=== PATIENT | male | born 1935 | race Caucasian/White ===

== ENCOUNTER 2016-08-20 10:39 | Observation (INO) | payer MEDICARE, OTHER ==
--- NOTE | 2016-08-20 11:30 | RAD ---
EXAM DESCRIPTION: Chest,1 View CLINICAL HISTORY: chest pain FINDINGS/ IMPRESSION: Comparison 04/28/2016 Mild cardiac enlargement and tortuous aorta. Cardiac pacer No pulmonary edema, alveolar infiltrate or effusion. No pneumothorax. Stable chest Electronically signed by: Bravo Oneil MD 08/20/2016 11:30 AM [facility]
--- NOTE | 2016-08-20 11:59 | ED.PDOC ---
History of Present Illness - General Chief Complaint: Chest Pain/ID Stated Complaint: chest pain and SOB Time Seen by Provider: 08/20/16 11:06 Source: patient, RN notes reviewed, Vital Signs reviewed, family, old records Exam Limitations: no limitations - History of Present Illness Initial Comments: Patient is an 81 y/o male who was having his PT/INR checked at his doctor's office when he started feeling very weak and having chest pain. Patient has had chest pain for the past 3 weeks. He has been feeling weak since April. He has lost about 30 pounds since April. He has a pacemaker, and he believes he was supposed to have it changed in May. He is having shortness of breath and is tachypnic. He feels very unstable when he walks and is fearful that he will fall. 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 reports some confusion at times. Timing/Duration: 1 hour Severity: moderate Improving Factors: nothing Worsening Factors: movement Associated Symptoms: chest pain, malaise, shortness of breath, weakness Allergies/Adverse Reactions: Allergies Penicillin V [From Pen-Vee-K] Allergy (Verified 08/20/16 10:54) Home Medications: Ambulatory Orders ALPRAZolam [Xanax] 1 mg PO BEDTIME 01/20/14 Calcium 600 mg PO DAILY 01/20/14 Sotalol HCl [Betapace] 80 mg PO BID 01/20/14 Warfarin Sodium 5 mg PO DAILY 01/20/14 Cholecalciferol [Vitamin D] 1,000 unit PO DAILY 04/28/16 Levothyroxine Sodium 50 mcg PO DAILY 04/28/16 Review of Systems - Review of Systems Constitutional: States: malaise, weakness EENTM: States: nose congestion Respiratory: States: short of breath Cardiology: States: chest pain Gastrointestinal/Abdominal: States: no symptoms reported Genitourinary: States: no symptoms reported Musculoskeletal: States: joint pain, muscle stiffness Skin: States: no symptoms reported Neurological: States: tremors, weakness Endocrine: States: unexplained weight loss Hematologic/Lymphatic: States: easy bleeding All other Systems: Reviewed and Negative Past Medical History (General) - Patient Medical History Hx Stroke: No Hx Cardiac Disorders: Yes Hx Congestive Heart Failure: No Hx Pacemaker: Yes Hx Hypertension: Yes Hx Thyroid Disease: Yes Hx Diabetes: No Hx Cancer: Yes - Skin Surgical History: pacemaker, tonsillectomy - Vaccination History Hx Tetanus, Diphtheria Vaccination: No Hx Influenza Vaccination: No Hx Pneumococcal Vaccination: Yes - Social History Hx Tobacco Use: No Hx Alcohol Use: No Hx Substance Use: No Family Medical History - Family History Father Family History: Unknown Living Status: Physical Exam - Physical Exam General Appearance: Alert, Restless Ears, Nose, Throat: hearing grossly normal Respiratory: decreased breath sounds, other - tachypnia Cardiovascular/Chest: regular rate, rhythm, no murmur Gastrointestinal/Abdominal: normal bowel sounds, non tender, soft, no organomegaly, no pulsatile mass Extremity: non-tender, pedal edema - 2+, swelling - 2+ edema Neurologic: alert, oriented x 3, other - irritable Skin Exam: normal color, warm/dry Progress - Results/Orders Results/Orders: 08/20/16 08/20/16 10:55 11:03 Temperature 96.5 F L Pulse Rate [ 66 65 MONITOR] Respiratory 22 22 Rate Blood Pressure 142/76 [Left Arm] O2 Sat by Pulse 96 Oximetry 08/20/16 12:15 EKG STAT 08/20/16 Lunch Regular Diet Laboratory Results WBC 6.1 K/mm3 (4.8-10.8) 08/20/16 10:55 RBC 5.30 M/mm3 (4.70-6.10) 08/20/16 10:55 Hgb 16.6 gm/dL (14.0-18.0) 08/20/16 10:55 Hct 50.7 % (42.0-52.0) 08/20/16 10:55 MCV 95.6 fl (80.0-94.0) H 08/20/16 10:55 MCH 31.2 pg (27.0-31.0) H 08/20/16 10:55 MCHC 32.7 g/dL (33.0-37.0) L 08/20/16 10:55 RDW 14.1 % (11.5-14.5) 08/20/16 10:55 Plt Count 214 K/mm3 (130-400) 08/20/16 10:55 MPV 8.6 fl (7.40-10.4) 08/20/16 10:55 Absolute Neuts (auto) 3.90 K/uL (1.8-6.8) 08/20/16 10:55 Absolute Lymphs (auto) 1.40 K/uL (1.0-3.4) 08/20/16 10:55 Absolute Monos (auto) 0.60 K/uL (0.2-0.8) 08/20/16 10:55 Absolute Eos (auto) 0.30 K/uL (0.0-0.4) 08/20/16 10:55 Absolute Basos (auto) 0.00 K/uL (0.0-0.1) 08/20/16 10:55 Neutrophils % 64.0 % (42.0-78.0) 08/20/16 10:55 Lymphocytes % 22.2 % (20.0-50.0) 08/20/16 10:55 Monocytes % 9.1 % (2.0-9.0) H 08/20/16 10:55 Eosinophils % 4.5 % (1.0-5.0) 08/20/16 10:55 Basophils % 0.2 % (0.0-2.0) 08/20/16 10:55 PT 29.8 SECONDS (9.4-12.5) H* 08/20/16 10:55 INR 2.660 08/20/16 10:55 PTT (SP) 38.6 SECONDS (25.1-36.5) H 08/20/16 10:55 D-Dimer, Quantitative < 230 ng/mL (0-230) 08/20/16 10:55 Sodium 141 mmol/L (135-145) 08/20/16 10:55 Potassium 4.2 mmol/L (3.6-5.0) 08/20/16 10:55 Chloride 107 mmol/L (101-111) 08/20/16 10:55 Carbon Dioxide 29 mmol/L (21-31) 08/20/16 10:55 Anion Gap 9.2 (12-18) L 08/20/16 10:55 BUN 25 mg/dL (7-18) H 08/20/16 10:55 Creatinine 0.96 mg/dL (0.6-1.3) 08/20/16 10:55 BUN/Creatinine Ratio 26.0 (10-20) H 08/20/16 10:55 Random Glucose 60 mg/dL (70-105) L 08/20/16 10:55 Serum Osmolality 283.5 mOsm/L (275-295) 08/20/16 10:55 Calcium 8.8 mg/dL (8.4-10.2) 08/20/16 10:55 Magnesium 2.4 mg/dL (1.8-2.5) 08/20/16 10:55 Creatine Kinase 52 IU/L (38-174) 08/20/16 10:55 CK-MB (CK-2) 2.4 ng/mL (0.0-4.4) 08/20/16 10:55 CK-MB (CK-2) % Not Reportable 08/20/16 10:55 Troponin I < 0.02 ng/mL (0.01-0.05) 08/20/16 10:55 B-Natriuretic Peptide 215.0 pg/ml (0-100) H* 08/20/16 10:55 Lipase 83 U/L (22-51) H 08/20/16 10:55 TSH 3.36 uIU/mL (0.34-5.60) 08/20/16 10:55 Urine Color Yellow (Yellow) 08/20/16 12:14 Urine Appearance Clear (Clear) 08/20/16 12:14 Urine pH 5.5 (4.5-7.8) 08/20/16 12:14 Ur Specific [place] 1.020 (1.005-1.030) 08/20/16 12:14 Urine Protein Negative mg/dL 08/20/16 12:14 Urine Glucose (UA) Negative mg/dL (Negative) 08/20/16 12:14 Urine Ketones Negative mg/dL (NEGATIVE) 08/20/16 12:14 Urine Blood Negative (Negative) 08/20/16 12:14 Urine Nitrite Negative 08/20/16 12:14 Urine Bilirubin Negative (NEGATIVE) 08/20/16 12:14 Urine Urobilinogen 0.2 mg/dL (0.2-1.0) 08/20/16 12:14 Ur Leukocyte Esterase Negative (Negative) 08/20/16 12:14 Urine RBC 0 /hpf 08/20/16 12:14 Urine WBC 0 /hpf 08/20/16 12:14 Ur Epithelial Cells 0 /hpf 08/20/16 12:14 Urine Bacteria 0 08/20/16 12:14 - EKG/XRAY/CT EKG: Changed from - 04/28/16 - Sinus rhythm with PVCs, 71 bpm Comments: Paced rhythm--ventricular XRAY: chest - No acute process Departure - Departure Clinical Impression: Hypoglycemia Chest pain Qualifiers: Chest pain type: unspecified Qualifier Code: (R07.9) Chest pain, unspecified Altered mental status Qualifiers: Altered mental status type: disorientation Qualifier Code: (R41.0) Disorientation, unspecified Time of Disposition: 14:41 Disposition: Admit Patient Referrals: Noah Diaz MD [Primary Care Provider] - 1-2 Weeks Home Medications: Ambulatory Orders ALPRAZolam [Xanax] 1 mg PO BEDTIME 01/20/14 Calcium 600 mg PO DAILY 01/20/14 Sotalol HCl [Betapace] 80 mg PO BID 01/20/14 Warfarin Sodium 5 mg PO DAILY 01/20/14 Cholecalciferol [Vitamin D] 1,000 unit PO DAILY 04/28/16 Levothyroxine Sodium 50 mcg PO DAILY 04/28/16 Decision To Admit - Decistion To Admit Decision to Admit Date: 08/20/16 Decision to Admit Time: 14:15
--- NOTE | 2016-08-20 14:45 | HP ---
HISTORY OF PRESENT ILLNESS: This 81 year-old white male is admitted to the hospital via the Emergency Room generally feeling very poorly for the 3 months since April. Earlier this morning he awoke and did not eat a very large breakfast, and went to Dr. Diaz's office for a finger stick ProTime INR determination because of being on Coumadin. He became sweaty and light-headed, and almost passed out. He is on the Coumadin because of a pacemaker with at least 2 battery changes. The pacer is set a 65. In the Emergency Room, he was found to be breathing rapidly between 24 and 28 times a minute with good pulse oximetry. Chest x-ray was fine. Beta natriuretic peptide was slightly elevated. A degree of edema on his extremities. Glucose was only 60. He was still very anxious noticeably. He is supposed to have a pacemaker check this next . He has had some fairly significant weight loss in recent months since April, Thanksgiving time. Further investigation reveals that many members of his family have been after him to stop his Xanax. He had been up on 1 mg 3 times a day and was doing fairly well. He started on Xanax on an increasing dose because of significant vertigo with inner ear dysfunction a few years ago with Dr. Bueno. The medicine really helped his vertigo. The end of April, he stopped the medication and proceeded to have some significant anxiety attacks, and then was restarted eventually on 0.25 mg at bedtime to help him sleep. He is noted and admits to taking some extra doses of the medicine during the day at various times in order to help him to have a "better day." Because of the tachypnea and the sensation of shortness of breath, the patient is placed in the hospital for overnight observation and reevaluation in the morning with Respiratory ambulation studies as well as an overnight desaturation test on room air to see how he does in sleeping. PAST MEDICAL HISTORY: 1. Chronic anxiety. 2. Vertigo. 3. Some edema recently. PAST SURGICAL HISTORY: 1. Left hernia repair by Dr. Graham. 2. Rotator cuff repair on both shoulders. 3. Sinus surgery. CURRENT MEDICATIONS: Refer to nurses' notes for a list of verified home medications taken by the patient. ALLERGIES: PENICILLIN. FAMILY HISTORY: Positive for diabetes and coronary artery disease. SOCIAL HISTORY: He has been in the [employer]. He has never smoked nor does he drink alcoholic beverages. REVIEW OF SYSTEMS: The patient describes having lost about 30 pounds in the last 3 or 4 months especially since he stopped taking the extra dosings of Xanax. No fever or chills. HEENT: No hearing or vision disturbances. LUNGS: Shortness of breath upon exertion is evident and especially when anxious. CARDIOVASCULAR: Some anterior left chest discomfort tender to touch and to deep breathe. Pacemaker insertion. He is getting ready to have his third batter placed. GASTROINTESTINAL: No nausea or vomiting, diarrhea or blood in the stools. GENITOURINARY: No dysuria. EXTREMITIES: Some edema recently with 4 or 5 pounds of weight gain recently, probably fluid. NEUROLOGIC: Feels quite weak, very anxious recently. PHYSICAL EXAMINATION: VITAL SIGNS: Afebrile, pulse 65, almost 100% pacer, blood pressure 123/85, pulse oximetry 96% room air, 98% on 2 liters. Respiratory rate was up to 25 at about 3:00 in the afternoon in the Emergency Room. Weight 71.8 kilos. GENERAL: The patient is otherwise awake, alert and oriented, and telling stories after coming into the hospital. Feeling better with no significant tachypnea in the hospital after coming out of the Emergency Room. HEENT: Within normal limits. No nystagmus. NECK: Supple. CHEST: Lungs are generally clear to auscultation. CARDIOVASCULAR: Heart tones regular without any significant gallops. ABDOMEN: Soft with no organomegaly, masses or tenderness. EXTREMITIES: Fairly well formed with good muscle tone, trace of edema. NEUROLOGIC: No focal neurological deficits. The patient describes being very anxious and the anxiety seems to be significantly relieved by taking some of the Xanax that he has been taking for years off and on. LABORATORY: White count 6,100, hemoglobin 16.6, INR 2.66, D-dimer is under 230. Chemistries show potassium 4.2, BUN 25, creatinine 0.96, glucose 60 in the Emergency Room, magnesium 2.4. Troponin zero. Beta natriuretic peptide 215. Lipase 83. TSH 3.36. Urine generally clean. No cultures obtained. Chest x-ray showed no acute findings. ASSESSMENT: 1. Significant tachypnea. Evaluate for hypoxic state. 2. Chronic anxiety with acute exacerbation seemingly helped by Benzodiazepine administration. 3. Mild hypoglycemia possibly symptomatic at blood draw time earlier this morning. 4. Chronic cardiac pacemaker with new battery placement soon to be scheduled. 5. Weight loss since April at which time he significantly cut back on his Benzodiazepine administration and may have suffered a Benzodiazepine withdrawal symptomatic episodes. PLAN: The patient will be placed on observation. Will observe his saturation overnight with room air and ambulation in the morning with room air checking for desaturation associated with tachypnea and dyspnea. Will continue with Xanax 0.5 mg h.s. May repeat times 1 and another 0.5 mg at about 8:00 in the morning. Try not to awaken him to allow him to get some good sleep. Further lab studies and reevaluation in the morning. If stable, may be able to consider home and followup with Dr. Diaz in the clinic. #[id number] [facility]
[2016-08-20] MEDS ORDERED: MAGNESIUM HYDROXIDE 30 ML UD PO PRN (20:12)
[2016-08-20] MEDS ORDERED: ACETAMINOPHEN 325 MG TAB PO PRN (20:12)
[2016-08-20] MEDS ORDERED: SODIUM CHLORIDE 0.9% (FLUSH) 10 ML SYG IV PRN (20:12)
[2016-08-20] MEDS ORDERED: HYDROcodone 5MG/APAP 325MG 1 EA TAB PO PRN (20:12)
[2016-08-20] MEDS ORDERED: IV SET AND CAP CHANGE INJ INJ SCH (20:30)
[2016-08-20] MEDS: LEVALBUTEROL NEBS 0.63 MG/3 ML VIAL INH SCH (20:48)
[2016-08-20] MEDS: ALPRAZolam 0.25 MG TAB PO SCH (21:11)
[2016-08-20] MEDS: SOTALOL 80 MG TAB PO SCH ×2 (21:11→21:53)
[2016-08-20] MEDS: SODIUM CHLORIDE 0.9% (FLUSH) 10 ML SYG IV SCH (21:11)
[2016-08-21] MEDS ORDERED: LEVOTHYROXINE SODIUM 0.025 MG TAB ONE (05:48)
[2016-08-21] MEDS: SOTALOL 80 MG TAB PO SCH ×2 (05:50→08:35)
[2016-08-21] MEDS ORDERED: OMEPRAZOLE CAP 20 MG CAP PO SCH (06:30)
[2016-08-21] MEDS ORDERED: SODIUM CHLORIDE 0.9% 10 ML VIAL IV PRN (07:20)
[2016-08-21] MEDS: ALPRAZolam 0.25 MG TAB PO SCH (07:53)
[2016-08-21] MEDS: LEVALBUTEROL NEBS 0.63 MG/3 ML VIAL INH SCH ×2 (08:08→13:50)
[2016-08-21] MEDS: SODIUM CHLORIDE 0.9% (FLUSH) 10 ML SYG IV SCH (08:35)
[2016-08-21] MEDS ORDERED: NON-FORMULARY MEDICATION 1 EA MIS (Levothyroxine Sodium [Levothyroxine Sodium] 50 MCG) PO SCH (09:00)
[2016-08-21] MEDS ORDERED: LEVOTHYROXINE SODIUM 0.025 MG TAB PO SCH (09:00)
[2016-08-21] MEDS ORDERED: CITALOPRAM HBR 20 MG TAB PO SCH (11:30)
[2016-08-21] MEDS ORDERED: WARFARIN SODIUM 5 MG TAB PO SCH (12:00)
[2016-08-21 14:37] VITALS: BP 91/52; TEMP 97.9; O2SAT 96
--- NOTE | 2016-08-26 09:00 | DS ---
SUPERVISING PHYSICIAN: La Phelps MD DISCHARGE DIAGNOSIS: 1. Chronic anxiety with acute exacerbation, helped by benzodiazepine administration. 2, Significant tachypnea with some mild hypoxia. 3. Chronic cardiac pacemaker with need for new battery placement soon and scheduled for replacement on the day of discharge at Dr. Jimenez's office. 4. Weight loss since April at which time he significantly cut back on his benzodiazepine administration and may be suffering in benzodiazepine withdrawal symptomatic episodes. HISTORY OF PRESENT ILLNESS: This is an 81-year-old male patient who was admitted to the hospital via the Emergency Room after he had been feeling poorly for three months. On the day of admission, he did not eat a large breakfast and went for a fingerstick protime. He was sweating and lightheaded and almost passed out. He is on Coumadin because of his pacemaker and has had several battery changes. According to his , he has needed a battery change for several months and for some reason he has been unable to get that battery changed. The pacemaker is set at 65. In the Emergency Room, he was tachypneic between 24 and 28 times per minute. He had some edema to his extremities and he had a slightly low glucose at 60. He was very noticeably anxious. The patient has been on Xanax for many years and around , his family strongly encouraged him to stop the Xanax. Previously, he had been on 1 mg three times a day and was doing well, but as he started decreasing his dosage, his anxiety increased as well as his vertigo worsened. He has had multiple anxiety attacks and those anxiety attacks have worsened because he has been worried about his pacemaker battery being out. Because of the tachypnea and the sensation of shortness of breath, the patient was placed in the hospital for overnight observation. HOSPITAL COURSE: The patient was placed back on scheduled dose of Xanax at a very low dose. I have also started him on some Celexa and maybe that will help the anxiety. His vital signs overnight have been stable. Blood pressure is 91/ 52. Respiratory rate had been between 18 to 20 breaths per minute. His oxygen saturations on room air have been greater than 95% and his pulse rate has been 65. At this point, I believe he is stable to be discharged home. He will see his booking officer, Dr. Shaka Jimenez, later today for a batter change and I believe that will help some of his anxiety. DISCHARGE PLAN: The patient will see his booking officer, Dr. Shaka Jimenez, this afternoon for a battery change. He will see Dr. Diaz next week as followup. It is unclear as to whether he wants to see Dr. Lora or Dr. Diaz at this time as I believe he has seen Dr. Lora recently, but for now I have started him on Celexa and hopefully that will help the anxiety. I also discussed with he and his that there should be a very slow tapering of the Xanax. At this point , he may need to take at least a low dose until he can wean himself off very slowly and he should see his primary care physician for the tapering dosing of his Xanax. He is to resume his previous diet. He is to increase his activity as tolerated. He will see Dr. Diaz next week. DISCHARGE MEDICATIONS: 1. Warfarin. 2. Sotalol. 3. Calcium. 4. Alprazolam. 5. Vitamin D. 6. Levothyroxine. 7. Citalopram. Dr. Phelps is the collaborating physician and available for consultation. #[id number] [facility]
== END 2016-08-21 18:16 | disposition home or self-care (01) ==
LOC: ER 10:39 → MS 14:44
PROVIDERS: ADMIT Emergency Medicine; ATTEND Nurse Practitioner Acute Care
DX: F41.8 Other specified anxiety disorders (principal); R06.82 Tachypnea, not elsewhere classified; R09.02 Hypoxemia; Z95.0 Presence of cardiac pacemaker; R63.4 Abnormal weight loss; R07.89 Other chest pain; E16.2 Hypoglycemia, unspecified; R42 Dizziness and giddiness; I49.3 Ventricular premature depolarization; Z79.01 Long term (current) use of anticoagulants; Z79.899 Other long term (current) drug therapy; Z88.0 Allergy status to penicillin; Z82.49 Family history of ischemic heart disease and other diseases of the circulatory system; Z83.3 Family history of diabetes mellitus
CPT/HCPCS: 36415; 71010; 80048 ×2; 81001; 82550; 82553; 83690; 83880; 84443; 84484; 85025 ×2; 85379; 85610; 85730; 86140; 93005 ×2; 94640 ×3; 94762; 96374; 99284; J2060; J7614 ×3

== ENCOUNTER → 2017-04-25 | Outpatient (CLI) | payer MEDICARE, OTHER ==
--- NOTE | 2017-04-27 08:42 | CT ---
Procedure: CT HEAD WITHOUT THEN WITH IV CONTRAST Exam date: 04/25/2017 12:00 AM CDT Ordering Provider: NY RICHARDS Clinical Indication: DIPLOPIA Comparison: None Technique: Using a helical scanner, sequential axial imaging of the brain was obtained with and without the administration of intravenous contrast. The exam was obtained from the skull base to vertex. This exam was performed according to our departmental dose optimization program which includes use of automated exposure control, adjustment of the mA and/or kV according to patient size and/or use of iterative reconstruction technique. Findings: Patchy, diffuse subcortical white matter hypoattenuations, nonspecific yet most suggestive of microvascular ischemic change. Global parenchymal volume loss as well as intracranial atherosclerosis. No pathologic enhancement. There is no midline shift or hydrocephalus. There is no acute intracranial hemorrhage or mass effect. There is no CT evidence for acute cortical infarct. Normal-appearing toribio and white matter with appropriate sulcation and normal parenchymal volume. The calvarium is intact. There is no fracture. There is no lytic or sclerotic lesion. The visualized paranasal sinuses and mastoid air cells are clear. IMPRESSION: 1. Nonacute CT scan of the brain with and without intravenous contrast administration. 2. Global parenchymal volume loss and microvascular ischemic changes. Electronically signed by: Shashi Yu MD 04/27/2017 8:40 AM [employer]
== END | disposition home or self-care (01) ==
LOC: CT 09:41
DX: H53.2 Diplopia (principal)

== ENCOUNTER → 2017-08-15 | Outpatient (CLI) | payer MEDICARE, OTHER | LOC: LAB.O 13:25 | PROVIDERS: ATTEND Nurse Practitioner Family | DX: R06.00 Dyspnea, unspecified (principal); R00.2 Palpitations ==

== ENCOUNTER → 2019-07-20 | Outpatient (CLI) | payer MEDICARE, OTHER ==
--- NOTE | 2019-07-21 15:52 | CT ---
TECHNIQUE: Spiral CT images were obtained of the cervical spine. Sagittal and coronal reconstructions were also performed. This exam was performed according to our departmental dose-optimization program, which includes automated exposure control, adjustment of the mA and/or kV according to patient size and/or use of iterative reconstruction technique. CLINICAL HISTORY PROVIDED: Cervicalgia COMPARISON: None available. FINDINGS: Alignment: No acute subluxation. Fracture: No acute fracture. Degenerative Changes: Multilevel degenerative changes are present. Prevertebral / Paraspinal Soft Tissues: Nothing acute. C1/2: No significant stenosis. C2/3: Posterior disc space narrowing. Small asymmetric left disc bulge osteophyte complex. Left greater than right facet and uncinate process hypertrophy. No significant central canal stenosis. Mild left neural foraminal narrowing. No significant right neural foraminal narrowing. C3/4: Disc space narrowing with endplate degenerative change. Diffuse symmetric disc bulge osteophyte complex. Mild central canal stenosis. Left greater than right facet and uncinate process hypertrophy. Severe left and moderate right neural foraminal narrowing. C4/5: Disc space narrowing with endplate degenerative change. Diffuse symmetric disc bulge osteophyte complex with a superimposed central disc protrusion. Mild central canal stenosis. Bilateral facet and uncinate process hypertrophy. Moderate bilateral neural foraminal narrowing. C5/6: Disc space narrowing with endplate degenerative change. Diffuse symmetric disc bulge osteophyte complex. Moderate central canal stenosis. Bilateral facet and uncinate process hypertrophy. Severe left and moderate right neural foraminal narrowing. C6/7: Disc space narrowing with endplate degenerative change. Diffuse disc bulge osteophyte complex with a superimposed calcified central disc protrusion. Mild bilateral neural foraminal narrowing. Mild central canal stenosis. C7/T1: Posterior disc space narrowing. Small symmetric disc bulge osteophyte complex. Mild bilateral neural foraminal narrowing. Bilateral facet hypertrophy. No significant central canal stenosis. IMPRESSION: Multilevel cervical spondylosis most pronounced at C5/C6 as above. Electronically signed by: Jeanmarie Forrest MD 07/21/2019 3:50 PM [facility]
== END ==
LOC: CT 15:11
PROVIDERS: ATTEND General Practice
DX: M47.892 Other spondylosis, cervical region (principal)